=== PATIENT | female | born 1940 | race Caucasian/White ===

== ENCOUNTER 2023-08-10 12:02 | Emergency (ER) | payer OTHER, SELFPAY ==
[2023-08-10 12:05] VITALS: BMI 19.8
[2023-08-10 12:27] VITALS: BP 219/99
[2023-08-10 13:31] VITALS: BP 205/93
[2023-08-10 13:52] LABS: Urine Albumin Negative (Neg - Trace); Urine Bilirubin Negative (Negative); Urine Character Clear (Clear); Urine Color Yellow; Urine Glucose Negative (Negative); Urine Ketone Negative (Negative); Urine Leukocyte Negative (Negative); Urine Nitrite Negative (Negative); Urine Occult Blood Negative (Negative); Urine Specific Gravity 1.015 (<1.030); Urine Urobilinogen Negative (Neg - 1+)
[2023-08-10 14:00] VITALS: BP 193/93
--- NOTE | 2023-08-10 14:25 | ED.GENMED ---
History of Present Illness
<Johnie Candelario DO - Last Filed: 08/10/23 14:30>
General
Chief Complaint: Abdominal Pain
Source: patient and family
Exam Limitations: dementia
Time Seen by Provider: 08/10/23 12:17
Travel History
Have you had any contact with someone who has COVID-19?: No
Do you have any symptoms of coronavirus? Fever > 100 degrees, chills, cough, shortness of breath, sore throat, loss of taste or smell, muscle aches, or headache?: No
History of Present Illness
History of Present Illness:
83-year-old female presents with abdominal pain. Daughter states that the past she has had constipation so thought maybe it was related. She did try an enema she did put out a small amount of stool. Patient did have some vomiting as well.
Symptoms started 2 days ago. No fevers.
Past History
<Johnie Candelario DO - Last Filed: 08/10/23 14:30>
Past History
ED Past Medical History: CVA, HTN, Other (TIA, peptic ulcer) and Other (Dementia)
Social History
Tobacco: Non-smoker
Alcohol: None
Drug: None
Personal:
Living: alone
Employment: Not employed
Phy Exam
<Johnie Candelario DO - Last Filed: 08/10/23 14:30>
Physical Exam
Physical Exam:
CONSTITUTIONAL Patient alert and oriented to person. Well-appearing. Vital signs reviewed.
HEAD atraumatic, normocephalic.
EYES eyelids normal to inspection, Extraocular muscles intact, Conjunctiva normal, Sclera normal.
NECK normal range of motion, Trachea midline, no jugular venous distention.
RESPIRATORY CHEST No respiratory distress noted, Chest expansion equal, Bilateral breath sounds clear.
CARDIOVASCULAR regular rate and rhythm, Heart sounds normal.
ABDOMEN moderate infraumbilical abdominal tenderness, mild distention
BACK normal inspection, no obvious deformities
UPPER EXTREMITY range of motion normal, Motor strength normal, no cyanosis, no edema.
LOWER EXTREMITY range of motion normal, Motor strength normal, no cyanosis, no edema.
NEURO Speech normal, No focal motor deficits, Cranial Nerves intact to screening exam.
SKIN skin warm, dry, and normal in color.
Course
<Johnie Candelario, DO - Last Filed: 08/10/23 14:30>
Orders/Labs/Results
Orders:
Orders
08/10/23 12:45
CT Abd/Pel (IV only)-[facility] only Urgent
Comment:
Reason For Exam: severe abd pain
08/10/23 12:49
0.9% Sodium Chloride 500 ml [Nss] 500 ml IV BOLUS
08/10/23 13:06
Urinalysis Reflex To Culture Urgent
Date Specimen was Collected: 08/10/23
Time Specimen was Collected: 13:04
08/10/23 13:12
Straight Cath As Directed
Frequency: One time now
08/10/23 14:20
Basic Metabolic Panel Urgent
Complete Blood Count/With Diff Urgent
08/10/23 17:04
Enema- Treatment ONCE
Type: Milk of Molasses
08/10/23 18:29
Magnesium Citrate [Citroma] 300 ml PO ONCE ONE
08/10/23 18:30
Magnesium Citrate [Citroma] 300 ml .ROUTE .STK-MED ONE
08/10/23 20:13
Glycerin [Glycerin Suppository Adult] 1 supp RECTAL NOW STA
Abnormal Lab Results
08/10/23
14:20
RDW 15.9 H %
(11.5-14.5)
Glucose 107 H mg/dl
(70-99)
08/10/23 14:20
08/10/23 14:20
Vital Signs
Initial and Last Documented VS:
Initial Vital Signs
Resp Pulse Ox
11 96
08/10/23 12:12 08/10/23 12:12
Last Documented Vital Signs
Temp Pulse Resp BP Pulse Ox
99.1 F 72 14 164/100 95
08/10/23 12:27 08/10/23 21:58 08/10/23 21:58 08/10/23 21:58 08/10/23 15:30
<Lev Hoskins, DO - Last Filed: 08/10/23 22:36>
Orders/Labs/Results
Orders:
Orders
08/10/23 12:45
CT Abd/Pel (IV only)-[facility] only Urgent
Comment:
Reason For Exam: severe abd pain
08/10/23 12:49
0.9% Sodium Chloride 500 ml [Nss] 500 ml IV BOLUS
08/10/23 13:06
Urinalysis Reflex To Culture Urgent
Date Specimen was Collected: 08/10/23
Time Specimen was Collected: 13:04
08/10/23 13:12
Straight Cath As Directed
Frequency: One time now
08/10/23 14:20
Basic Metabolic Panel Urgent
Complete Blood Count/With Diff Urgent
08/10/23 17:04
Enema- Treatment ONCE
Type: Milk of Molasses
08/10/23 18:29
Magnesium Citrate [Citroma] 300 ml PO ONCE ONE
08/10/23 18:30
Magnesium Citrate [Citroma] 300 ml .ROUTE .STK-MED ONE
08/10/23 20:13
Glycerin [Glycerin Suppository Adult] 1 supp RECTAL NOW STA
Abnormal Lab Results
08/10/23
14:20
RDW 15.9 H %
(11.5-14.5)
Glucose 107 H mg/dl
(70-99)
08/10/23 14:20
08/10/23 14:20
Vital Signs
Initial and Last Documented VS:
Initial Vital Signs
Resp Pulse Ox
11 96
08/10/23 12:12 08/10/23 12:12
Last Documented Vital Signs
Temp Pulse Resp BP Pulse Ox
99.1 F 72 14 164/100 95
08/10/23 12:27 08/10/23 21:58 08/10/23 21:58 08/10/23 21:58 08/10/23 15:30
<Johnie Candelario DO - Last Filed: 08/10/23 14:30>
MDM/Problems Addressed
Differential Diagnosis Includes:
Colitis, diverticulitis, AAA, rectal impaction, perforated viscus, UTI
<Johnie Candelario DO - Last Filed: 08/10/23 14:30>
*Pulse Oximetry
Patient hypoxic: no
*Critical Care Note
Total Time (30-74mins, 75-104mins- exclusive of procedures): Not Applicable
Data Reviewed
Review of Other/Old Records Reveals: Radiology Studies (Recent June CT reviewed)
Source: family
Prescriptions/Medications Considered But Not Given:
Consider pain medication patient appears stable at rest
<Lev Hoskins, DO - Last Filed: 08/10/23 22:36>
Update Note
Update Note:
5 PM care of patient was initially transitioned pending CT and blood work. Blood work without clinical significance. CT shows evidence of constipation. There is no evidence of stercoral colitis. Daughter at bedside does not want her mother being
stuck to many times. The provider performing ordered lactic acid but this would require another venous puncture. Daughter refused to have this done. On my exam, she is sitting in bed comfortably. Rectal disimpaction was performed with nurse
Yolande at bedside. Significant amount of stool was removed. Will give milk of molasses enema. I discussed with daughter that constipation untreated could result in bowel perforation and significant morbidity and mortality. Daughter acknowledges
this and states she wants to take the daughter home.
I did convince Patient and mother to stay for further treatment. I did give magnesium citrate but patient does not drink a lot. I then gave a suppository. Although there is not significant bowel movements, patient is now stating that she is
feeling better. At this point, will give dose of lactulose and discussed follow-up with primary care. On my exam, she has a soft and nontender abdomen
ED Attending Note
<Johnie Candelario DO - Last Filed: 08/10/23 14:30>
-
Portions of this chart may have been created with voice recognition software.� Occasional wrong word or��sound alike� substitutions may have occurred due to the inherent limitations of voice recognition software.
Discharge Plan
Departure
Patient Disposition: Home (Routine Discharge)
Date of Disposition: 08/10/23
Time of Disposition: 22:34
Patient with high blood pressure during this ER visit?: Yes
Discharge Problem:
Constipation
Instructions: Constipation, Adult (DC)
Prescriptions:
No Action
nystatin 100,000 unit/gram cream
1 applic TOPICAL BID
Patient Comments:
07/09/2023, patient's family state that they alternate this medication with the powder.
clonidine 0.3 mg/24 hr patch weekly
1 patch transdermal SA
Patient Comments:
07/09/2023, patient applied this patch on Saturday (07/06/2023) and is currently wearing it on her right upper arm.
mupirocin 2 % ointment
1 applic topical BID
multivitamin Liquid
1 ea PO DAILYPRN PRN (Reason: supplement)
nystatin 100,000 unit/gram Powder
1 applic TOPICAL BID PRN (Reason: under breasts)
Patient Comments:
07/09/2023, patient's family state that they will apply this medication to the patient whenever their rashes are looking better and are not wet. Family state that they alternate between this medication and the cream.
losartan 50 mg Tablet
50 mg PO DAILY Qty: 30 0RF
nitrofurantoin 50 mg/5 mL suspension
50 mg PO Q12H Qty: 60 0RF
Rx Instructions:
Take 5 ml twice aday for 3 days only
ondansetron HCl 4 mg tablet
4 mg PO Q8H PRN (Reason: nausea and vomiting) Qty: 10 0RF
Referrals:
Jesse Lyles MD [Family Provider] -
Activity Restrictions/Additional Instructions:
Please return for any worsening symptoms.
You may return at any time if you have further concerns.
Please follow up with your doctor at the first available appointment, preferably this week.
Please take miralax daily until symptoms resolve.
Thank you for choosing [facility].
Interventions
Interventions:
*Risk Screen - Suicide Last Done: 08/10/23 12:05
*General Assessment Last Done: 08/10/23 12:05
*Neglect/Abuse Screening Last Done: 08/10/23 12:05
ED- Fall Risk Assessment Last Done: 08/10/23 18:24
*ED COVID-19 Vaccine History Last Done: 08/10/23 12:05
[facility]-Cnwsgk-Zkyhacsxmm Assessment Last Done: 08/10/23 12:05
[2023-08-10 14:35] LABS: % Basophils 0.4 % (0-2); % Eosinophils 3.4 % (0-6); % Immature Granulocytes 0.3 % (0-0.5); % Lymphocytes 26.4 % (20.5-51.1); % Monocytes 4.1 % (1.7-9.3); % Neutrophils 65.4 % (42.2-75.2); Absolute Eosinophils 0.3 10^3/uL (0-0.7); Absolute Lymphocytes 1.9 10^3/uL (1.2-3.4); Absolute Monocytes 0.3 10^3/uL (0.1-0.6); Absolute Neutrophils 4.7 10^3/uL (1.4-6.5); Hematocrit 41.4 % (37.0-47.0); Hemoglobin 13.9 g/dL (12.0-16.0); Mean Corp Hgb Conc. 33.6 g/dL (33.0-37.0); Mean Corpuscular Hgb 27.4 pg (27.0-31.0); Mean Corpuscular Volume 81.5 fL (81.0-99.0); Nucleated Red Blood Cells % 0 %; Platelet Count 256 10^3/uL (130-400); Red Blood Cell Count 5.08 10^6/uL (4.20-5.40); Red Cell Dist. Width 15.9 % (11.5-14.5); White Blood Cell Count 7.3 10^3/uL (4.8-10.8)
[2023-08-10 14:56] LABS: Blood Urea Nitrogen 12 mg/dl (7-17); Calcium 9.8 mg/dl (8.4-10.2); Carbon Dioxide 24 mmol/L (22-30); Chloride 106 mmol/L (98-107); Estimated Creatinine Clearance 38 ml/min; Glucose 107 mg/dl (70-99); Sodium 138 mmol/L (135-145); eGFR > 60.00
[2023-08-10] MEDS: NSS 500 IV (15:02)
[2023-08-10] MEDS: CITROMA 300 ML PO (18:32)
[2023-08-10] MEDS: GLYCERIN SUPPOSITORY ADULT 1 SUPP RECTAL (20:26)
[2023-08-10 20:31] VITALS: BP 190/92
[2023-08-10 21:58] VITALS: BP 164/100
--- NOTE | 2023-08-11 00:55 | EDRN ---
Report given to Acute Care transport
== END 2023-08-11 01:02 | disposition home or self-care (01) ==
LOC: EMR 12:02
PROVIDERS: EMERGENCY PHYSICIAN Emergency Medicine; FAMILY PHYSICIAN Family Medicine
DX: K59.00 Constipation, unspecified (principal); R10.9 Unspecified abdominal pain; R11.10 Vomiting, unspecified; I10 Essential (primary) hypertension; F03.90 Unspecified dementia, unspecified severity, without behavioral disturbance, psychotic disturbance, mood disturbance, and anxiety; Z86.73 Personal history of transient ischemic attack (TIA), and cerebral infarction without residual deficits; Z88.0 Allergy status to penicillin
CPT/HCPCS: 99285; 74177; 80048; 81003; 85025; Q9967

== ENCOUNTER 2023-10-05 10:31 | Inpatient (IN) | payer OTHER, SELFPAY ==
[2023-10-05] VITALS (11 sets, daily range): BP systolic 110–171; BP diastolic 54–97; BMI 17.8
[2023-10-05 06:56] LABS: % Basophils 0.4 % (0-2); % Immature Granulocytes 0.4 % (0-0.5); % Lymphocytes 8.3 % (20.5-51.1); % Neutrophils 87.9 % (42.2-75.2); Absolute Lymphocytes 0.9 10^3/uL (1.2-3.4); Absolute Monocytes 0.3 10^3/uL (0.1-0.6); Absolute Neutrophils 9.6 10^3/uL (1.4-6.5); Hematocrit 41.2 % (37.0-47.0); Hemoglobin 13.6 g/dL (12.0-16.0); Mean Corpuscular Hgb 28.1 pg (27.0-31.0); Mean Corpuscular Volume 85.1 fL (81.0-99.0); Nucleated Red Blood Cells % 0 %; Platelet Count 294 10^3/uL (130-400); Red Blood Cell Count 4.84 10^6/uL (4.20-5.40); Red Cell Dist. Width 15.3 % (11.5-14.5)
[2023-10-05 07:07] LABS: ALT (SGPT) 14 U/L (0-35); AST (SGOT) 29 U/L (14-36); Alkaline Phosphatase 81 U/L (38-126); Blood Urea Nitrogen 19 mg/dl (7-17); Calcium 9.9 mg/dl (8.4-10.2); Carbon Dioxide 22 mmol/L (22-30); Chloride 102 mmol/L (98-107); Glucose 133 mg/dl (70-99); Potassium 5.1 mmol/L (3.5-5.1); Sodium 139 mmol/L (135-145); Total Bilirubin 0.8 mg/dl (0.2-1.3); Total Protein 7.4 g/dl (6.3-8.2); eGFR > 60.00
--- NOTE | 2023-10-05 07:14 | ED.GENMED ---
History of Present Illness
General
Chief Complaint: Change in Mental Status
Time Seen by Provider: 10/05/23 07:05
Travel History
Have you had any contact with someone who has COVID-19?: Unable to Answer
Do you have any symptoms of coronavirus? Fever > 100 degrees, chills, cough, shortness of breath, sore throat, loss of taste or smell, muscle aches, or headache?: Unable to Answer
History of Present Illness
History of Present Illness:
83-year-old female with history of dementia presents to the emergency department for evaluation of altered mental status. According to her daughter with whom she resides she has had mild coughing as well as general fatigue for the past several
days, was evaluated by her primary care physician yesterday and apparently had a urine culture that was positive. She was started on Bactrim double strength, she has taken 1 dose thus far but apparently vomited shortly after administration. This
morning she seemed to be more confused than normal and was moaning and appeared uncomfortable. She does have a prior history of constipation. No fevers noted. Patient cannot provide any history due to dementia and acute change in mental status
Past History
Past History
ED Past Medical History: CVA, HTN, Other (TIA, peptic ulcer) and Other (Dementia)
Social History
Tobacco: Non-smoker
Alcohol: None
Drug: None
Personal:
Living: alone
Employment: Not employed
Review of Systems
Review of Systems
Allergies reviewed?: Yes
All Other Systems: ROS reviewed and negative except as documented in HPI and ROS
Phy Exam
Physical Exam
Physical Exam:
GEN: Thin and frail, cachectic appearing, no distress
HEENT: Oral mucosa moist, no scleral icterus
Cardiac: Regular rate and rhythm, no murmur
Lung: No respiratory distress, no tachypnea, lungs clear to auscultation
Abdomen: Soft, patient moans to palpation of all 4 quadrants, no rigidity
MSK: No gross deformity or injuries
Skin: Good color, no pallor or jaundice, no rashes
Neuro: Alert, follows commands intermittently, minimally verbal
Psych: Calm, cooperative
Course
Orders/Labs/Results
Orders:
Orders
10/05/23 06:45
CBC/With Diff [Complete Blood Count/With Diff] Urgent
CMP [Comprehensive Metabolic Panel] Urgent
10/05/23 07:12
CT Abd/Pel (IV only)-[facility] only Urgent
Comment:
Reason For Exam: diffuse abd pain, vomiting
10/05/23 07:13
CT Head W/o Iv Contrast Urgent
Comment:
Reason For Exam: altered mental status, vomiting
10/05/23 07:22
Urinalysis Reflex To Culture Urgent
Date Specimen was Collected: 10/05/23
Time Specimen was Collected: 07:21
Urine Microscopic Reflex Cult Urgent
Urine Culture Urgent
RENAN Source: U
Specimen Description:
Date Specimen was Collected: 10/05/23
Time Specimen was Collected: 07:21
10/05/23 09:58
Ertapenem [Invanz] 1,000 mg 0.9% Sodium Chloride [Nss] 50 ml IV NOW
10/05/23 10:21
Admit/Transfer Patient As Directed
Co-Sign Provider:
Level of Care: Inpatient admission
Assign to:: Medical/Surgical
Physician / Group: Leodan/hospitalist
Diagnosis: change in MS/UTI
Reason for Hospitalization: change in MS/UTI
Expected length of stay greater than two midnights?: Yes
ELOS- Estimated Length of Stay in days: 2
I certify the patient meets the requirements for IP care: Yes
Speech Therapy Eval & Treat Routine
10/05/23 10:22
Code Status As Directed
Resuscitation Status: Full Code
Abnormal Lab Results
10/05/23 10/05/23
06:45 07:22
WBC 11.0 H 10^3/uL
(4.8-10.8)
RDW 15.3 H %
(11.5-14.5)
Absolute Neuts (auto) 9.6 H 10^3/uL
(1.4-6.5)
Absolute Lymphs (auto) 0.9 L 10^3/uL
(1.2-3.4)
Neutrophils % 87.9 H %
(42.2-75.2)
Lymphocytes % 8.3 L %
(20.5-51.1)
BUN 19 H mg/dl
(7-17)
Glucose 133 H mg/dl
(70-99)
Ur Occult Blood Reflex 1+ A
(Negative)
Urine Nitrite (Reflex) Positive A
(Negative)
Leukocyte Esterase Rfl 2+ A
(Negative)
Urine WBC (Reflex) >100 A /HPF
(0-5)
Urine Bacteria (Reflex) Many A
(Negative)
10/05/23 06:45
10/05/23 06:45
Vital Signs
Initial and Last Documented VS:
Initial Vital Signs
Pulse Resp BP Pulse Ox
94 18 171/81 95
10/05/23 06:30 10/05/23 06:30 10/05/23 06:30 10/05/23 06:30
Last Documented Vital Signs
Pulse Resp BP Pulse Ox
76 14 124/89 97
10/05/23 12:00 10/05/23 12:00 10/05/23 12:00 10/05/23 10:00
MDM/Problems Addressed
MDM/Problems Addressed:
83-year-old female presents with altered mental status. Began antibiotics for UTI yesterday but did not tolerate the medication. She is unable provide any history secondary to acute encephalopathy superimposed on top of dementia. She has
leukocytosis and strong evidence for UTI on straight cath UA. Given her encephalopathic changes it would likely be challenging for her daughter to administer her home antibiotics thus will admit for IV antibiotics and further management
*Critical Care Note
Total Time (30-74mins, 75-104mins- exclusive of procedures): Not Applicable
ED Attending Note
-
Portions of this chart may have been created with voice recognition software.� Occasional wrong word or��sound alike� substitutions may have occurred due to the inherent limitations of voice recognition software.
Discharge Plan
Departure
Patient Disposition: Admit
Date of Disposition: 10/05/23
Time of Disposition: 09:44
Presentation/result/management discussed w/ accepting MD/DO: Hospitalist
Discharge Problem:
Urinary tract infection, Toxic metabolic encephalopathy
Interventions
Interventions:
*Risk Screen - Suicide Last Done: 10/05/23 06:30
*General Assessment Last Done: 10/05/23 06:30
*Neglect/Abuse Screening Last Done: 10/05/23 06:30
ED- Fall Risk Assessment Last Done: 10/05/23 12:49
*ED COVID-19 Vaccine History Last Done: 10/05/23 12:49
*Nursing Disposition Last Done: 10/05/23 12:49
ED- Pulmonary Assessment Last Done: 10/05/23 08:10
ED-Psychological Assessment Last Done: 10/05/23 12:49
ED- Neurological Assessment Last Done: 10/05/23 08:10
ED- Cardiac Assessment Last Done: 10/05/23 08:10
ED Swallowing Screen Last Done: 10/05/23 08:10
Discharge Date and Time
Discharge Date/Time: 10/05/23 12:52
[2023-10-05 07:41] LABS: Urine Albumin Trace (Neg - Trace); Urine Bilirubin Negative (Negative); Urine Character Clear (Clear); Urine Color Yellow; Urine Glucose Negative (Negative); Urine Ketone Negative (Negative); Urine Leukocyte 2+ (Negative); Urine Nitrite Positive (Negative); Urine Occult Blood 1+ (Negative); Urine Urobilinogen Negative (Neg - 1+)
[2023-10-05 08:03] LABS: Urine Bacteria Many (Negative); Urine White Cell >100 /HPF (0-5)
[2023-10-05 08:04] LABS: Urine Red Blood Cell 0-2 /HPF (0-2)
--- NOTE | 2023-10-05 10:04 | HPS.HSE ---
Family Physician
-
Family Physician: INTERVIEWE UNKNOWN - PT NOT
Chief Complaint
-
confusion
History of Present Illness
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 Per daughter, she is conversant at baseline, but now she does
not respond to any questions.
She was evaluated by her primary care physician the day prior and apparently had a urine culture that was positive.�She was started on Bactrim double strength, has taken 1 dose but vomited shortly after administration.�
Medical History
Past Medical History
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
Past Surgical History: Reports Other (No recent major surgery)
Social History
Unable to obtain full social history at this time due to: Dementia
Alcohol: None
Drug: None
Personal:
Living: With Family (daughter )
Family History
Family History: Not pertinent
Allergies / Home Medications
Allergies reflects when Allergies were last updated in [facility].
Home Medications with original date entered in [facility]
Allergy/Medication List:
Allergies
Allergy/AdvReac Type Severity Reaction Status Date / Time
Penicillins Allergy Nausea / Verified 02/26/23 10:31
Vomiting-tolerated
ceftriaxone
02/2023
admission
Home Medications
clonidine 0.3 mg/24 hr weekly transdermal patch 1 patch transdermal SA Blood Pressure 06/10/23
mupirocin 2 % topical ointment 1 applic topical BID rash on back 06/10/23
nystatin 100,000 unit/gram topical cream 1 applic topical BID under breasts 06/10/23
multivitamin 1 ea PO DAILYPRN PRN supplement 07/09/23
nystatin 100,000 unit/gram topical powder 1 applic topical BID PRN under breasts 07/09/23
losartan 50 mg tablet 50 mg PO DAILY #30 tabs 07/11/23
nitrofurantoin 50 mg/5 mL oral suspension 50 mg (5 mL) PO Q12H #60 mL 07/11/23
ondansetron HCl 4 mg tablet 4 mg PO Q8H PRN nausea and vomiting #10 tabs 07/11/23
Review of Systems
-
Neurological: Reports See HPI
Psych: Reports See HPI
Physical Exam
Vital Signs
Vital Signs
Pulse Resp BP Pulse Ox
82 23 110/80 96
10/05/23 08:00 10/05/23 08:00 10/05/23 08:00 10/05/23 08:00
Physical Exam
General: Well Developed, Well Nourished, No Apparent Distress, Comfortable and Appears Chronically Ill; No Conversant
HEENT: NormoCephalic, Moist mucous membranes and Atraumatic
Respiratory: Clear and Non Labored Respirations; No Accessory Resp Muscle Use
Cardiac: S1/S2 and Regular Rhythm; No Murmur or Rub
GI: Soft, Non Tender, Non Distended and Normal Bowel Sounds; No Organomegaly
Rectal: Deferred by Provider
Musculoskeletal: No Clubbing, No Cyanosis and No Edema
Skin: No Rash
Neuro: Awake
Psych: Calm and Apparent Dementia; No Intact Judgment/Insight
Laboratory Results
-
10/05/23 06:45
10/05/23 06:45
Laboratory Results
Total Bilirubin 0.8 mg/dl (0.2-1.3) 10/05/23 06:45
AST 29 U/L (14-36) 10/05/23 06:45
ALT 14 U/L (0-35) 10/05/23 06:45
Alkaline Phosphatase 81 U/L (38-126) 10/05/23 06:45
Data Reviewed
-
Lab Data: Labs Reviewed by me
Impression/Plan
-
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 Per daughter, she is conversant at baseline, but now she does
not respond to any questions.
She was evaluated by her primary care physician the day prior and apparently had a urine culture that was positive.�She was started on Bactrim double strength, has taken 1 dose but vomited shortly after administration.�
In the morning of admission, she seemed to be more confused than normal and was moaning and appeared uncomfortable.
A/P:
# acute metabolic encephalopathy likely due to UTI
# h/o ESBL Klebsiella UTI
Follow urine Cx
cont ertapenem
Monitor MS
SPL eval prior to starting diet, gentle IVF while NPO
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
# h/o Dysphagia
baseline MS is awake and conversant, but not orientated. She is currently non-conversant
SPL eval as above
daughter states that pt does NOT like pureed diet
# History of seizure likely related to stroke at that time
Not on seizure meds
# Essential HTN
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
DVT ppx: lovenox SQ
Code: Full
DW daughter at bedside
[2023-10-05] MEDS: INVANZ 60 MG IV (10:05)
[2023-10-05] MEDS: NSS 1000 IV (13:57)
[2023-10-05] MEDS: MIRALAX 17 GRAMS PO (14:09)
--- NOTE | 2023-10-05 14:48 | PTOTSP ---
ST Acute Care Evaluation
Pt presents with mild oral phase dysphagia and no signs of pharyngeal dysphagia. Pt is deemed safe to consume regular solids and thin liquids, provided that regular solids are selected by someone who is familiar with what she can tolerate and that
they are cut up into bite sized pieces. Given that the pt's daughter will remain with the pt during this stay, recommendations are listed below with this in consideration.
Recommendations:
- Initiate PO diet of regular solids, thin liquids, meds in puree (as able).
- Aspiration precautions: only feed when pt is fully awake and alert, small bites/sips, alternate bites/sips.
- MULTIMEDIA AUTHORING SPECIALIST to f/u to ensure safest, least restrictive diet consistency is being provided.
[2023-10-05] MEDS: SENOKOT-S PO ×2 (20:34→22:54)
--- NOTE | 2023-10-05 23:20 | PTCARENOTE ---
Although Tammy has been actively using the bathroom, she refused both oral care and washing her body, with either cleansing wipes or soap and water.
[2023-10-06 06:00] VITALS: BMI 17.2
[2023-10-06] MEDS: NSS 1000 IV (06:13)
[2023-10-06 07:00] VITALS: BP 129/108
--- NOTE | 2023-10-06 07:05 | PTCARENOTE ---
Daughter refused to have am labs drawn for pt. Informed am RN. to follow up w/ doctors
[2023-10-06] MEDS: COZAAR 50 MG PO (09:44)
[2023-10-06] MEDS: MIRALAX 17 GRAMS PO (09:45)
[2023-10-06] MEDS: SENOKOT-S 1 TABLET PO (09:45)
[2023-10-06] MEDS: INVANZ 60 MG IV (09:45)
--- NOTE | 2023-10-06 10:00 | PTCARENOTE ---
When i entered the room at 930, I was rechecking BP to ensure accuracy. I spoke with the daughter.She was pleasant happy and just waking up from sleeping on the chairs. She did not have any complaints. her mother looked very comfortable pleasant
and without any grimacing or tense facial features to suggest discomfort. I spoke with the daughter to ask how to unmanned equipment operator her mother her medications and she stated it was with applesauce. I told her that it was suggested i try something the
patient likes such as yogert or icecream from last nurse. She stated that apple sauce was fine. I went to go crush medications. Two minutes later, I came back with the PCT to do give medications and do a comfort round to check her bottom, change
her brief and to re position her to prevent pressure ulcers. Pt very frail and cachectic with decreased muscle mass and fat in all extremities with sunken cheeks. She has very prominent elbows and wanted to reduce pressure ulcer risk. When PCT and
my self came back, the daughter was extremily agitated had patient onto her left side and was changing the patient brief from a small smear. The patient was crying, grimacying and very tense and visibly uncomfortable as daughter was repositioning
her and changing diaper all on her own. I said, Amy and i were just going to do this and she told me it is no use because she can do it her self since noone ever comes in to take care of her mother. She was agitated, tremoring and had hostile
physical features , PCT stepped back. I asked if we could assist her and she stated she should not have to ask. She began telling me how terrible all the nurses are and the terrible care she has gotten here and its better she does it on her
own. At this point, In a hathaway mannor, I explained to her that her actions towards me and the PCT are not appropriate as we were present to care for her mother. She again told me how terrible the nurses have been and she does not trust anyone. I
asked her if she would step out of the room to allow the PCT and myself change her mother. She did comply. After we changed her and repositioned the patient, I asked the daughter if she would give amy and I a chance to provide great care to her
mother. I validated her anger, hostility and her untrust for us. I asked her if she would let me show her my best work and true committment to her mother before she takes it out on me. At this point she agreed and then she proceeded to tell me that
her brother on this floor almost a year ago and then her mother suffered a stroke from the stress of this . We talked for thirty minutes about the difficult time she has had in the last year with loosing her brother and taking care of her
mother. I spent time to tell her how well cared her mother appears and that she has been doing a good job. I left the room wtih a promise that we will be making hourly comfort rounds and turning her q 2 hours.
--- NOTE | 2023-10-06 10:28 | W.PN.HOSP.TC ---
Today's Communication/Plan
-
see A/P
Assessment / Plan
Assessment / Plan
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 Per daughter, she is conversant at baseline, but now she does
not respond to any questions.
She was evaluated by her primary care physician the day prior and apparently had a urine culture that was positive.�She was started on Bactrim double strength, has taken 1 dose but vomited shortly after administration.�
In the morning of admission, she seemed to be more confused than normal and was moaning and appeared uncomfortable.
A/P:
# acute metabolic encephalopathy likely due to UTI
# h/o ESBL Klebsiella UTI�
urine Cx with GNR, follow S/S
cont ertapenem
Monitor MS
SPL cleared for solid, cont with ensure
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
# h/o Dysphagia
baseline MS is awake and conversant, but not orientated. She is currently non-conversant
daughter states that pt does NOT like pureed diet
SPL cleared for solid
# History of seizure likely related to stroke at that time
Not on seizure meds
# Essential HTN
continue ADMINISTRATIVE LIBRARY ASSISTANT Clonidine patch and losartan with holding parameter
DVT ppx: lovenox SQ
Code: Full
DW daughter at bedside
Anticipated Discharge: 24 - 48 hours
Subjective/Interval History
-
Date of Service: October 06, 2023
Objective Data
-
Labs:
Laboratory Results
10/06/23
06:00
WBC Cancelled
Hgb Cancelled
Hct Cancelled
Plt Count Cancelled
Sodium Cancelled
Potassium Cancelled
Chloride Cancelled
Carbon Dioxide Cancelled
BUN Cancelled
Creatinine Cancelled
Glucose Cancelled
Calcium Cancelled
Vital Signs:
Vital Signs
Temp Pulse Resp BP Pulse Ox
36.4 C 53 15 129/108 94
10/06/23 07:00 10/06/23 07:00 10/06/23 07:00 10/06/23 07:00 10/06/23 07:00
I&O
10/05/23 10/06/23 10/07/23
06:59 06:59 06:59
Intake Total 790 / 790
Balance 790 / 790
Review of Systems
-
Unable to obtain full review of systems at this time due to: Dementia and Acuity
Physical Exam
-
General: Well Developed, No Apparent Distress, Comfortable and Appears Chronically Ill; Negative Conversant
HEENT: Normocephalic
Respiratory: Clear to Auscultation and Non Labored Respirations; Negative Accessory Resp Muscle Use
Cardiac: Regular Rhythm
GI: Soft and Nontender
Skin: Warm
Neuro: Awake
Psych: Calm and Apparent Dementia
Data Reviewed
-
Labs: Labs Reviewed by me
[2023-10-06 15:00] VITALS: BP 157/82
[2023-10-06 15:26] VITALS: BP 152/78
--- NOTE | 2023-10-06 15:42 | PTCARENOTE ---
Pt turned and repositioned . Pt with BM smear, changed brief, cream applied and new foam dressing. Daughter at bedside appears vry happy and pleasant. Patient without any grimacing and appears very comfortable and pain free. daughter ordered lunch
and it is on her way
--- NOTE | 2023-10-06 15:44 | PTCARENOTE ---
Last note was fo 12 NOON. I am unable to change the time
--- NOTE | 2023-10-06 15:45 | PTCARENOTE ---
1400. Pt turned and repositioned onto left side. brief changed with brown pasty stool.
[2023-10-06] MEDS: SENOKOT-S PO ×2 (20:28)
--- NOTE | 2023-10-06 22:37 | PTCARENOTE ---
Nurse and PCT entered patient's room @2233 to turn/reposition and provide personal hygiene care to patient. Patient's daughter at first agreed for patient to be turned then immediately after stated 'I will do it, I do it at home all the time, I
don't want to wake her up since she's sleeping'. Patient's daughter stated to this nurse to have patient reposition every 3 hours. This nurse reminded daughter of protocol to turn patient every 2 hours to prevent pressure ulcer, and reminded
daughter patient was repositioned @2030 and incontinent care provided. Daughter states to come back in 1/2 hour, will continue plan of care.
--- NOTE | 2023-10-06 23:20 | PTCARENOTE ---
2310 Nurse and Tech turn/repositioned patient and incontinent care provided, vitals taken with daughter at bedside.
[2023-10-06 23:35] VITALS: BP 163/60
--- NOTE | 2023-10-07 01:15 | PTCARENOTE ---
Patient's daughter refused q2h repositioning, request staff to return @0200, will continue plan of care.
--- NOTE | 2023-10-07 04:19 | PTCARENOTE ---
Patient's daughter refused 0400 repositioning, does not want patient repositioned until 0600, will continue plan of care.
--- NOTE | 2023-10-07 05:58 | PTCARENOTE ---
White Lead Filterer reports daughter refuse to have AM labs drawn, will continue plan of care.
[2023-10-07] MEDS: COZAAR 50 MG PO (07:49)
[2023-10-07] MEDS: SENOKOT-S 1 TABLET PO ×2 (07:49→20:03)
[2023-10-07] MEDS: MIRALAX 17 GRAMS PO ×2 (07:49→20:03)
[2023-10-07 07:54] VITALS: BP 176/71
--- NOTE | 2023-10-07 09:10 | W.PN.HOSP.TC ---
Today's Communication/Plan
-
see bold
Assessment / Plan
Assessment / Plan
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 Per daughter, she is conversant at baseline, but now she does
not respond to any questions.
She was evaluated by her primary care physician the day prior and apparently had a urine culture that was positive.�She was started on Bactrim double strength, has taken 1 dose but vomited shortly after administration.�
In the morning of admission, she seemed to be more confused than normal and was moaning and appeared uncomfortable.
A/P:
# Acute metabolic encephalopathy likely due to UTI
# H/o ESBL Klebsiella UTI�
Urine cultures growing Klebsiella pneumoniae, sensitive to cefazolin
Change IV Invanz to Keflex 500 mg 3 times a day
# Vascular dementia with h/o multiple infarction left cerebral hemisphere
# H/o Dysphagia
Baseline MS is awake and conversant, but not orientated. She is currently non-conversant
Lives at home with daughter
Daughter states that pt does NOT like pureed diet
SPL cleared for solid
# History of seizure likely related to stroke at that time
Not on seizure meds
# Essential HTN
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
Blood pressure fluctuates, add hydralazine as needed
DVT ppx: lovenox SQ
Code: Full
Updated daughter on phone 10/06
Total time spent to see the patient on the floor, examine the patient, review data and lab results, discuss treatment plan with patient, nursing staff around 51 minutes.
Physical Exam
General: No acute distress
HEENT: Normocephalic, Atraumatic, EOMI, MMM
Respiratory: Clear to Auscultation bilaterally
Cardiac: Normal S1/S2, Regular Rate and Rhythm
GI: Soft, Nontender, Nondistended, Normal Bowel Sounds
Extremities: No Clubbing, Cyanosis, or Edema
Neuro: Pleasantly confused, not answering questions
Psych: Calm
Derm: No Visible lesions
Anticipated Discharge: Within 24 hours
Subjective/Interval History
-
Date of Service: October 07, 2023
Patient is refusing to answer questions. Her caregivers at her bedside, states she ate breakfast. No vomiting. No fever.
Objective Data
-
Labs:
Laboratory Results
10/07/23
06:00
WBC Pending
Hgb Pending
Hct Pending
Plt Count Pending
Sodium Pending
Potassium Pending
Chloride Pending
Carbon Dioxide Pending
BUN Pending
Creatinine Pending
Glucose Pending
Calcium Pending
Vital Signs:
Vital Signs
Temp Pulse Resp BP Pulse Ox
97.5 F 41 16 176/71 93
10/07/23 07:54 10/07/23 07:54 10/07/23 07:54 10/07/23 07:54 10/07/23 07:54
I&O
10/06/23 10/07/23 10/08/23
06:59 06:59 06:59
Intake Total 790 / 790 330 / 330
Balance 790 / 790 330 / 330
[2023-10-07] MEDS: INVANZ 60 MG IV (09:27)
[2023-10-07 11:15] VITALS: BP 188/85
[2023-10-07 11:52] VITALS: BMI 17.2
[2023-10-07] MEDS: MUCINEX 600 MG PO (12:31)
[2023-10-07] MEDS: APRESOLINE 50 MG PO ×2 (13:35→21:08)
--- NOTE | 2023-10-07 14:26 | PTOTSP ---
Received order for PT evaluation. S/w pt's caregiver in room who stated pt is nonambulatory at baseline and they use [facility] to get her OOB at home. There are no skilled PT needs for this pt who has long-standing contractures, resists ROM, and is
dependent at baseline. PT will sign off.
--- NOTE | 2023-10-07 15:28 | CM ---
CM spoke with pts daughter Silvana to complete initial assessment
Pt lives with her daughter Silvana, and has a FF set up in home
Pt is total care. Has a post acute care nurse (Diana) for 8-10 hours/day M-F
DME includes mech lift, wheel chair
Denies past SNF
Receiving home services with [facility] and [facility] care. Through palliative care pt receives home PT thru [facility]
Pt will need transport home
PCP - Dr Esteban Lyles
Pharm - [facility], [place]
CM will refer to [facility] to resume service
Plan - Home with services - HH [facility]
[2023-10-07 15:35] VITALS: BP 127/65
[2023-10-07] MEDS: KEFLEX 500 MG PO ×2 (16:06→21:08)
--- NOTE | 2023-10-07 18:03 | PTCARENOTE ---
Report: director of global talent nurse stated daughter refused AM labs
7:10: this nurse introduced self to pt and daughter, stated no needs at this time. Noted
this nurse would be back around with morning Meds in a little bit
7:50-8:05: ensure given, large ice water w/ miralax given (daughter stated it was not mixed enough
and mixed it again), losartan given crushed with applesauce (daughter stated Meds weren't crushed
enough, this nurse used silent night to crush Meds), pt refuses to open mouth for Meds, will
try and give Senokot later. Assessment completed by this nurse. Pt brief dry. Pt turned,
pillow placed under R side. Pt daughter ordered breakfast for pt. Daughter left,
critical care nurse now at bedside. Pt daughter requesting enema for pt. ' that's what works at
home and i think the miralax is hurting her stomach'
9:27-9:38: This nurse hung IV abx (see MAR). Pt took crushed senna from this am in applesauce.
pt took some sips of ensure and tea. Caregiver given cup of ice water, no other needs
verbalized at this time. Breakfast tray at bedside.
10:10-10:19: this nurse and tech went into room to change and turn pt. Pt caregiver at bedside.
pt disconnected from IV Abx. pt had small void and small pastey bm. pt wiped with purple bath
wipes. Pt turned, pillow placed under Left side. Breakfast try cleared, no other needs vocalized
by pt or caregiver at this time.
10:55: House keeper in to clean room
11:00: daughter called for update. this nurse did not speak to hospitalist, no report in for today
at this time. tt Dr. Adan to call daughter for update.
11:05 : bp and hr elevated this AM, recheck bp 188/85 hr 54. Dietitian in room
11:14: manual bp 182/90. Dr adan notified via tt. Caregiver also requesting pt get Mucinex,
Dr. adan notified via tt
11:44: dr. adan notified this nurse that daughter was updated and happy, Meds ordered
12:30-12:50: Lunch at bedside, lunch ensure given. caregiver stepped out of the room so
nurse and tech could give pt enema. Moderate soft bm post enema. pt changed, small void
noted. Mucinex given crushed in applesauce. Pt turned, pillow placed under Right side.
Caregiver states no other needs at this time.
13:35 : Dr. Adan added PRN hydralazine, BP still elevated 174/72 hr 51. PO hydralazine given (see MAR)
13:55-14:03: changed pt, small loose bm. Pt turned, pillow under Left side. No other
needs stated by pt or caregiver at bedside.
15:00: bp 127/65 hr 70
16:06: Keflex given in applesauce. Last ensure given for today. pt changed, small smear and void.
pt turned, pillow placed under Right side. no further needs verbalized by pt or caregiver
at the bedside at this time.
17:00: Daughter updated at bedside. stated that this nurse would be back to change,
turn and give pt 6pm Meds.
17:55: this nurse walked into room, pt daughter turning pt, stated she already changed pt.
dinner at bedside. pt daughter declined pt to receive Lovenox. Pt and daughter given fresh ice water.
this nurse and another nurse boosted pt in bed.
[2023-10-07] MEDS: MUCINEX PO (20:03)
[2023-10-07] MEDS: ROBITUSSIN 100 MG PO (20:15)
--- NOTE | 2023-10-07 20:17 | PTCARENOTE ---
Patient received from previous shift with daughter by bedside. Patient repositioned by nurse and Tech @1950, incontinent care provided. Patient with small pasty stool. SPECIAL FORCES OFFICER notified requesting mucinex tablet to be changed to liquid since med is not
allowed to be crushed and patient is unable to take whole. New order received, meds administered as ordered.
[2023-10-07 20:29] LABS: Glucose - Point of Care 117 mg/dl (70-99)
[2023-10-07 20:31] VITALS: BP 164/105
--- NOTE | 2023-10-07 20:43 | W.PN.UPDATE ---
Update Note
Progress Note Update
SHROUDMAN at 20:27
Daughter was at the bedside, stating the the patient (looks confused) and have difficult breathing. Patient is afebrile, Spo2 98% on RA, bp, hr within limits, and bs 117.
Patient was admitted with toxic metabolic encephalopathy. During the exam, patient is calm, sitting in bed with no apparent distress, breathing normally on room air, patient is awake but not answering questions. Per chart review ( patient has
vascular dementia that due to stroke) and seems that she was not answering the providers on the previous exams. Head CT done 10/04 with no acute abnormalities and no new changes. Discussed the case with the daughter and she refused diagnostic tests
to be done for the patient. Daughter mentioned that her mother will be D/C by tomorrow in am and no need for tests to be done.
--- NOTE | 2023-10-07 20:44 | RR ---
Patient's daughter arrived into room approximately 2019, came into the hallway yelling that her mom 'is freaking out'. Nurses rushed in to room where patient was lying in bed with no s/s of distress. Patient in bed at her baseline appear calm and
comfortable. Patient was turned/repositioned, meds administered with no issues prior to daughter entering room. A Rapid Response was called on this patient, please see Rapid Response form.
--- NOTE | 2023-10-07 21:26 | PTCARENOTE ---
Patient's daughter told CUSTOM APPLICATOR Maxine she doesn't want labs drawn that was ordered during Rapid Response. 2107 prn BP med and Abt given as ordered with daughter by bedside. Patient observed biting down on toothbrush that daughter was using for oral care.
Oral swabs offered, daughter accepts. 2129 Daughter reminded patient will need repositioning @2199. Daughter stated she will ring when she is ready for patient to be turned, plan of care continues.
--- NOTE | 2023-10-07 22:20 | PTCARENOTE ---
Nurse did rounds on patient, offered turning/repositioning, patient's daughter refused. patient is alert and awake, daughter conversing with her at bedside.
[2023-10-07 23:15] VITALS: BP 138/93
[2023-10-08] VITALS (7 sets, daily range): BP systolic 91–156; BP diastolic 50–88
--- NOTE | 2023-10-08 00:05 | PTCARENOTE ---
Personal hygiene care provided by nurse and tech, patient incontinent small BM. Vitals taken which are stable. After care was provided, patient's daughter refused for nurse and tech to turn/reposition patient repeatedly stating 'I can do it, I will
do it, I do this at home by myself all the time'. Nurse repeatedly offer to assist in repositioning patient, daughter gets easily agitated and mumbles to her self then repeatedly stated 'I can do it'. Nurse asked patient's daughter if there was
anything else she needed at this time, daughter stated 'no'. will continue plan of care.
[2023-10-08 01:28] LABS: Glucose - Point of Care 147 mg/dl (70-99)
[2023-10-08] MEDS: KEPPRA 1000 MG IV (01:47)
--- NOTE | 2023-10-08 01:54 | W.PN.UPDATE ---
Addendum entered and electronically signed by DANIELAL Richards 10/08/23 06:55:
In am, daughter refused f/u labs as discussed previously with her and would like to speak to the attending physician.
Will update the attending physician.
Original Note:
Update Note
Progress Note Update
another PROJECT FACILITATOR called at 1:25am
Patient had an episode of seizure witnessed by daughter and staff. Patient did not loss her consciousness, she was starring to the ceiling with some face tremor that last for about one minute per staff, vital signs within limits, afebrile bs 147.
Patient has history of seizure seen by neurology at [facility] on 12/2022 was started Keppra 500mg BID and recommended to continue. Currently patient is not on anti seizure meds. Per daughter, 'my mom was acting like zombie' and anti
seizure meds was stopped by her PCP.
Plan
Stat one time of IV Keppra 1000mg now and 500mg BID starting in am. Neuro consult was placed
-Head CT ordered, result shows no acute hemorrhage, herniation , or hydrocephalus. Moderate preventricular hypodensities likely the sequela of small vessel ischemia disease. 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 Extensive parenchymal volume
loss. No calvarial fracture. The visualized paranasal sinus and mastoid air cells are clear.
-Carbon dioxide 14 patient was started on sodium bicarb 150meq in water 70cc/hr IV and will repeat bmp.
-WBC 15.4 previously was 11 on 10/05 patient continue afebrile currently on Keflex 500mg for UTI
-lactic 8.2 that possibly elevated as an effect of the seizure, will recheck q 4hrs.
-Discussed all diagnostic tests result with the daughter at bedside and updated with the current plan of care.
[2023-10-08 01:57] LABS: % Basophils 0.4 % (0-2); % Eosinophils 0.3 % (0-6); % Lymphocytes 13.8 % (20.5-51.1); % Monocytes 2.7 % (1.7-9.3); % Neutrophils 81.8 % (42.2-75.2); Absolute Basophils 0.1 10^3/uL (0-0.2); Absolute Immature Granulocytes 0.2 10^3/uL (0-0.05); Absolute Lymphocytes 2.1 10^3/uL (1.2-3.4); Absolute Monocytes 0.4 10^3/uL (0.1-0.6); Absolute Neutrophils 12.6 10^3/uL (1.4-6.5); Hematocrit 38.1 % (37.0-47.0); Hemoglobin 12.6 g/dL (12.0-16.0); Mean Corp Hgb Conc. 33.1 g/dL (33.0-37.0); Mean Corpuscular Hgb 28.1 pg (27.0-31.0); Mean Corpuscular Volume 84.9 fL (81.0-99.0); Mean Platelet Volume 9.7 fL (7.4-10.4); Nucleated Red Blood Cells % 0 %; Platelet Count 351 10^3/uL (130-400); Red Blood Cell Count 4.49 10^6/uL (4.20-5.40); Red Cell Dist. Width 15.4 % (11.5-14.5); White Blood Cell Count 15.4 10^3/uL (4.8-10.8)
--- NOTE | 2023-10-08 02:15 | RR ---
Patient's daughter was heard screaming @0123, nurses rushed to respond. Patient was observed with seizure like activity. Patient's face was shaking with tremor like appearance. Seizure like activity lasted approximately 1 minute ending @0124, a few
seconds after entering room. Bp was elevated during seizure like activity 219/140 HR 140. Immediately after seizure activity BP was 120/72 HR 92, Pox 94-95 %RA. A Rapid Response was called on this patient, please see Rapid Response form.
[2023-10-08 02:24] LABS: ALT (SGPT) 14 U/L (0-35); AST (SGOT) 30 U/L (14-36); Albumin 3.4 g/dl (3.5-5.0); Alkaline Phosphatase 83 U/L (38-126); Blood Urea Nitrogen 15 mg/dl (7-17); Calcium 9.4 mg/dl (8.4-10.2); Carbon Dioxide 14 mmol/L (22-30); Chloride 105 mmol/L (98-107); Estimated Creatinine Clearance 38 ml/min; Glucose 150 mg/dl (70-99); Lactic Acid 8.2 mmol/L (0.7-2.0); Magnesium 2.2 mg/dl (1.6-2.3); Potassium 3.6 mmol/L (3.5-5.1); Sodium 136 mmol/L (135-145); Total Bilirubin 0.3 mg/dl (0.2-1.3); Total Protein 6.4 g/dl (6.3-8.2); eGFR > 60.00
--- NOTE | 2023-10-08 02:45 | PTCARENOTE ---
Patient received Stat dose of Keppra during RR for seizure like activity, labs drawn and patient transferred off unit @[address] scan by RR team. Upon returning from CT scan, patient turned and repositioned, incontinent care provided, brief
slightly damp. Daughter offered ice water which was accepted. Critical results of Co2 14 and Lactic Acid 8.2 TT to FINANCIAL REPORT SERVICE SALES AGENT. New orders received for IV fluids, will continue plan of care.
[2023-10-08] MEDS: SODIUM BICARBONATE 1150 MEQ IV ×2 (02:55→17:58)
--- NOTE | 2023-10-08 03:10 | PTCARENOTE ---
Patient's daughter asking to speak to a doctor. Patient's daughter told that the GREENHOUSE FLORIST is in charge of the unit at night. Patient's daughter wants to speak to GREENHOUSE FLORIST. GREENHOUSE FLORIST Maxine notified, stated she will be in to speak to patient's daughter as soon as
possible due to being in the middle of an admission. Patient's daughter made aware, will continue plan of care.
[2023-10-08] MEDS: OFIRMEV 100 IV (03:54)
--- NOTE | 2023-10-08 04:21 | PTCARENOTE ---
0310 Patient's daughter asked to speak to a doctor. Patient's daughter told that the DIRECTOR OUTCOMES is in charge of the unit at night. Patient's daughter wants to speak to DIRECTOR OUTCOMES. DIRECTOR OUTCOMES was made aware and came in to speak to daughter.
--- NOTE | 2023-10-08 05:55 | PTCARENOTE ---
0325 Patient's daughter reports patient not feeling well, patient assessed for pain. Patient lethargic, drowsy unable to take PO tylenol, SHIRT MAKER made aware, IV tylenol ordered.
0430 Patient's daughter refused q2turn repositioning, stated 'she's comfortable, I don't want to bother her, I'll ring if I need anything'.
0554 Patient refused f/u lab draw for lactic acid.
--- NOTE | 2023-10-08 07:31 | PTCARENOTE ---
0603 ICT PROJECT MANAGER made aware patient's daughter refused lactic acid lab draw, new order received for BMP. Patient's daughter again refuse lab draw.
--- NOTE | 2023-10-08 07:59 | W.PN.HOSP.TC ---
Addendum entered and electronically signed by Jorge Morgan MD 10/08/23 16:19:
#Moderate protein calorie malnutrition
Encourage oral intake
Original Note:
Today's Communication/Plan
-
see bold
Assessment / Plan
Assessment / Plan
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 Per daughter, she is conversant at baseline, but now she does
not respond to any questions.
She was evaluated by her primary care physician the day prior and apparently had a urine culture that was positive.�She was started on Bactrim double strength, has taken 1 dose but vomited shortly after administration.�
In the morning of admission, she seemed to be more confused than normal and was moaning and appeared uncomfortable.
A/P:
# Acute metabolic encephalopathy likely due to UTI
# H/o ESBL Klebsiella UTI�
Urine cultures growing Klebsiella pneumoniae, sensitive to cefazolin
S/p IV Invanz, now on Keflex 500 mg 3 times a day D3/
# Vascular dementia with h/o multiple infarction left cerebral hemisphere
# H/o Dysphagia
Baseline MS is awake and conversant, but not orientated. She is currently non-conversant
Lives at home with daughter -daughter would like patient to return home
Daughter states that pt does NOT like pureed diet
SPL cleared for solid
# History of seizure likely related to stroke at that time
Not on seizure meds
Patient had seizure activity at 1 AM on 10/07
Daughter reports poor reaction to Keppra and Lacosamide
Appreciate neurology input, who was started Brivaracetam�
Will order IV Ativan as needed seizure activity
#Lactic acidosis
Likely due to seizure activity, resolving
# Essential HTN
Continue RESTORER PAPER AND PRINTS Clonidine patch and losartan with holding parameter
Blood pressure fluctuates, added hydralazine as needed
DVT ppx: lovenox SQ
Code: Full
Updated daughter 10/07
Total time spent to see the patient on the floor, examine the patient, review data and lab results, discuss treatment plan with patient, nursing staff around 52 minutes.
Physical Exam
General: No acute distress
HEENT: Normocephalic, Atraumatic, EOMI, MMM
Respiratory: Clear to Auscultation bilaterally
Cardiac: Normal S1/S2, Regular Rate and Rhythm
GI: Soft, Nontender, Nondistended, Normal Bowel Sounds
Extremities: No Clubbing, Cyanosis, or Edema
Neuro: Somnolent
Psych: Calm
Derm: No Visible lesions
Anticipated Discharge: 24 - 48 hours
Subjective/Interval History
-
Date of Service: October 08, 2023
Overnight events noted. Patient had seizure activity. She is currently somnolent, and would not respond. No fever.
Objective Data
-
Labs:
Laboratory Results
10/07/23 10/08/23 10/08/23
20:45 01:43 06:29
WBC Cancelled 15.4 H
Hgb Cancelled 12.6
Hct Cancelled 38.1
Plt Count Cancelled 351
Sodium Cancelled 136 Pending
Potassium Cancelled 3.6 D Pending
Chloride Cancelled 105 Pending
Carbon Dioxide Cancelled 14 L* Pending
BUN Cancelled 15 Pending
Creatinine Cancelled 0.7 Pending
Glucose Cancelled 150 H Pending
Calcium Cancelled 9.4 Pending
Total Bilirubin 0.3
AST 30
ALT 14
Alkaline Phosphatase 83
Vital Signs:
Vital Signs
Temp Pulse Resp BP Pulse Ox
98.4 F 83 18 150/87 97
10/08/23 07:00 10/08/23 07:00 10/08/23 07:00 10/08/23 07:00 10/08/23 07:00
I&O
10/07/23 10/08/23 10/09/23
06:59 06:59 06:59
Intake Total 330 / 330 720 / 720
Balance 330 / 330 720 / 720
[2023-10-08] MEDS: KEPPRA 500 MG IV (08:24)
[2023-10-08] MEDS: COZAAR 50 MG PO (08:31)
[2023-10-08] MEDS: MIRALAX 17 GRAMS PO (09:37)
[2023-10-08] MEDS: MUCINEX PO (09:38)
[2023-10-08] MEDS: KEFLEX 500 MG PO ×3 (09:38→23:07)
[2023-10-08] MEDS: SENOKOT-S PO ×2 (09:39→20:36)
--- NOTE | 2023-10-08 09:54 | PTCARENOTE ---
pt's morning medications were given spaced out in applesauce and chocolate pudding for easier delivery. Daughter, Silvana, in agreement with plan. Decision by daughter to hold non-critical meds.
--- NOTE | 2023-10-08 10:20 | PTOTSP ---
Orders received. Chart reviewed. Pt currently requiring total care for all ADLs and mobility; pt is a leif transfer at home. Pt lives with daughter and 24 hour caregiver support. Skilled OT services not indicated at this time. Will sign off.
--- NOTE | 2023-10-08 10:30 | CON.NEURO ---
Neuro Assessment/Plan
Assessment
IMPRESSIONS/RECOMMENDATIONS:
Abrupt change in mental status with staring spells and prior history of seizures attributed to dementia and prior stroke
Most likely due to absence of anti-seizure medication, new UTI, and prior risk factors for seizures
Plan
replace Levetiracetam with Brivaracetam due to suggestion of sedation with Levetiracetam and Lacosamide; patient's family requests the discontinuance of medication
consider return of palliative care
Will continue to follow patient as needed.
Consultation
Order
Date of Consultation: 10/08/23
Requesting Provider: Hospitalist
Reason for Consult: Seizure
Subjective/Objective
Subjective Data
Date of Service: October 08, 2023
Patient was brought to this hospital's emergency department due to decline in mental status. The patient has had generalized fatigue and an abnormal urine culture immediately prior to the day of presentation.
Prior to presentation, the patient was placed on palliative care due to advanced dementia.
Previously, the patient was evaluated and treated by my esteemed colleague due to an acute left anterior circulation and basal ganglia ischemic stroke in 2022. The patient was then described as having episodes of staring spells lasting
approximately 1 minute beginning in December 2022.
Subsequently seen by my esteemed colleague in the office 02/2023 with instruction to change Levetiracetam to Lacosamide. Patient continued demonstrate to tearfulness then was discontinued from use of that med as of approximately 06/2023. Suggested to
have had excessive sleepiness with Lacosamide and Levetiracetam.
Patient now on Palliative Care Service as outpatient.
While hospitalized, the patient was described as experiencing an episode of staring into space as witnessed by her daughter who is at bedside. This episode lasted approximately 1 minute prior to complete resolution. At the time the patient was
able to her mouth although she was unable to speak at the time.
The patient subsequently the following day experienced an identical episode. Neither episode was clearly associated with other symptomatology including involuntary movements of the body, tongue biting, incontinence of bowel or bladder.
Objective Data
Vital Signs
Temp Pulse Resp BP Pulse Ox
36.9 C 83 18 150/87 97
10/08/23 07:00 10/08/23 08:31 10/08/23 07:00 10/08/23 08:31 10/08/23 07:00
Lab Results
10/08/23 01:43
Sodium 136 mmol/L (135-145) 10/08/23 01:43
Potassium 3.6 mmol/L (3.5-5.1) D 10/08/23 01:43
BUN 15 mg/dl (7-17) 10/08/23 01:43
Glucose 150 mg/dl (70-99) H 10/08/23 01:43
Calcium 9.4 mg/dl (8.4-10.2) 10/08/23 01:43
Patient Allergies
Penicillins Allergy (Verified 02/26/23 10:31)
Nausea / Vomiting-tolerated ceftriaxone 02/2023 admission
Review of Systems
-
Unable to obtain full review of systems at this time due to: Dementia and Lethargy
History Source: Patient
All other systems: Reviewed and negative
Physical Exam
-
General: No Apparent Distress and Appears Stated Age
Eyes: No Ptosis
HEENT: Normocephalic and Moist Mucous Membranes
Neck: Full Range of Motion
Respiratory: No Dyspnea; Negative Accessory Resp Muscle Use
Cardiac: No Murmur
GI: Non-distended
Skin: Unremarkable
Extremities: No Clubbing, No Cyanosis and No Edema
Psych: Negative Intact Judgement/Insight
Extended Neurological Exam
Mood & Affect: Unable to Assess
Attention Span & Concentration: Lethargic, Closes Eyes after Stimulation (instantly; maintains eyes closed) and Unable to Perform 2 Step Request; Negative Awake, Alert or Interactive
Memory: Unable to Recall Personal History
Tremor: Hand Tremor Absent and Head Tremor Absent
Involuntary Movement: None
Speech: Expressive Aphasia, Receptive Aphasia and Other (grunting only with stimulation)
Cranial Nerve II: Left Eye: Pupillary Reactivity Unremarkable, Pupillary Size Unremarkable and Unable to Assess Visual [place]
Cranial Nerve II: Right Eye: Pupillary Reactivity Unremarkable, Pupillary Size Unremarkable and Unable to Assess Visual [place]
Cranial Nerves III, IV, : Extraocular Movement: Absent Doll's Eyes
Cranial Nerve V: Facial Sensation: Unable to Assess
Cranial Nerve VII: Facial Symmetry: Normal Facial Symmetry
Cranial Nerve VIII: Hearing: Unable to Assess
Cranial Nerves IX, X: Palate Movement: Unable to Assess
Cranial Nerve XI: Shoulder Shrug: Unable to Assess
Cranial Nerve XII: Tongue Protusion: Unable to Assess
Muscle Strength, Overall: Other (Right arm 0/5, right leg 2/5 withdrawal)
Muscle Bulk & Tone: Bulk Unremarkable and Tone Unremarkable
Pronator Drift: Unable to Assess
Deep Tendon Reflexes: Unremarkable Throughout
Cold Sensation: Unable to Assess
Vibration Sensation: Unable to Assess
Touch Sensation: Withdrawal to Pain
Coordination: Unable to Assess
Babinski Sign: Absent Bilaterally
Gait & Station: Unable to Assess
Data Reviewed
-
Labs: Report Reviewed
Reviewed with: Physician and Family
Old Records: Summarized
Medications
-
Active Medications
Generic Name Dose Route Start Last Admin
Trade Name Freq PRN Reason Stop Dose Admin
Acetaminophen 650 mg 10/05/23 20:42
Acetaminophen (Oral Solution) 650 Mg/20.3 Ml Cup PO 11/02/23 20:41
Q4HPRN PRN
mild pain/HENRIQUEZ/temp> 100.4F
Cephalexin HCl 500 mg 10/07/23 16:00 10/08/23 09:38
Cephalexin 500 Mg Capsule PO 500 mg
TID CANDE Administration
Clonidine HCl 0.3 mg 10/12/23 08:00
Clonidine 0.3 Mg Patch TRANSDERM 11/09/23 07:59
SA CANDE
Enoxaparin Sodium 40 mg 10/05/23 18:00 10/07/23 17:55
Enoxaparin Sodium 40 Mg/0.4 Ml Syringe SC 11/02/23 17:59 Not Given
QPM CANDE
Guaifenesin 600 mg 10/07/23 12:00 10/08/23 09:38
Guaifenesin 600 Mg Extended Release Tablet PO 11/04/23 11:59 Not Given
Q12 CANDE
Guaifenesin 100 mg 10/07/23 19:53 10/07/23 20:15
Guaifenesin Oral Solution (200 Mg/10 Ml) Cup PO 11/04/23 19:52 100 mg
Q4HPRN PRN Administration
cough
Hydralazine HCl 50 mg 10/07/23 12:59 10/07/23 21:08
Hydralazine 50 Mg Tablet PO 11/04/23 12:59 50 mg
TID PRN Administration
for SBP >160
Sodium Bicarbonate 150 meq/ 1,150 mls @ 70 mls/hr 10/08/23 02:30 10/08/23 02:55
Sterile Water IV 10/09/23 02:29 1,150 mls
[id number] CANDE Administration
Levetiracetam 500 mg 10/08/23 08:00 10/08/23 08:24
Levetiracetam (100 Mg/Ml) 500 Mg/5 Ml Vial IV 11/05/23 07:59 500 mg
Q12 CANDE Administration
Losartan Potassium 50 mg 10/06/23 08:00 10/08/23 08:31
Losartan 50 Mg Tablet PO 11/03/23 07:59 50 mg
DAILY CANDE Administration
Ondansetron HCl 4 mg 10/05/23 13:32
Ondansetron 4 Mg/2 Ml Vial IV 11/02/23 13:31
Q6HPRN PRN
nausea and vomiting
Polyethylene Glycol 17 grams 10/07/23 20:00 10/08/23 09:37
Polyethylene Glycol Powder 17 Grams Packet PO 11/04/23 19:59 17 grams
BID CANDE Administration
Senna/Docusate Sodium 1 tablet 10/05/23 20:00 10/08/23 09:39
Docusate W/Senna (Keila-Colace) Tablet PO 11/02/23 19:59 Not Given
BID CANDE
Sodium Chloride 0 flush 10/05/23 14:00
Sodium Chloride 0.9% (Flush) Syringe IV 11/02/23 13:59
PER PROTOCOL CANDE
Home Medications
Medication Instructions Recorded
clonidine 0.3 mg/24 hr weekly 1 patch transdermal SA Blood 06/10/23
transdermal patch Pressure
losartan 50 mg tablet 50 mg PO DAILY #30 tabs 07/11/23
polyethylene glycol 3350 17 gram 17 g PO DAILYPRN PRN constipation 10/05/23
oral powder packet (Miralax)
sulfamethoxazole 800 1 tab PO BID Infection 10/05/23
mg-trimethoprim 160 mg tablet
(Bactrim DS)
Past History
Past History
ED Past Medical History: CVA (L SIDNEY/basal ganglia ischemic 2022), HTN, Other (TIA, peptic ulcer, epilepsy) and Other (Dementia)
ED Past Surgical History: None
Social History
Tobacco: Non-smoker
Alcohol: None
Drug: None
Personal:
Living: alone
Employment: Not employed
Family History
Family History: Other (reviewed and non-contributory)
[2023-10-08 11:23] LABS: % Basophils 0.4 % (0-2); % Eosinophils 0.4 % (0-6); % Immature Granulocytes 0.5 % (0-0.5); % Lymphocytes 22.2 % (20.5-51.1); % Monocytes 4.8 % (1.7-9.3); % Neutrophils 71.7 % (42.2-75.2); Absolute Lymphocytes 1.7 10^3/uL (1.2-3.4); Absolute Monocytes 0.4 10^3/uL (0.1-0.6); Absolute Neutrophils 5.6 10^3/uL (1.4-6.5); Hematocrit 32.2 % (37.0-47.0); Hemoglobin 10.9 g/dL (12.0-16.0); Mean Corp Hgb Conc. 33.9 g/dL (33.0-37.0); Mean Corpuscular Hgb 28.1 pg (27.0-31.0); Mean Platelet Volume 9.6 fL (7.4-10.4); Nucleated Red Blood Cells % 0 %; Platelet Count 272 10^3/uL (130-400); Red Blood Cell Count 3.88 10^6/uL (4.20-5.40); Red Cell Dist. Width 15.3 % (11.5-14.5); White Blood Cell Count 7.9 10^3/uL (4.8-10.8)
[2023-10-08 11:39] LABS: Blood Urea Nitrogen 15 mg/dl (7-17); Calcium 8.8 mg/dl (8.4-10.2); Carbon Dioxide 25 mmol/L (22-30); Chloride 104 mmol/L (98-107); Estimated Creatinine Clearance 33 ml/min; Glucose 97 mg/dl (70-99); Sodium 132 mmol/L (135-145); eGFR > 60.00
[2023-10-08 11:43] LABS: Lactic Acid 2.3 mmol/L (0.7-2.0)
[2023-10-08 11:54] LABS: Procalcitonin 0.35 ng/ml (0.0-0.25)
[2023-10-08] MEDS: BRIVIACT 50 MG PO (12:13)
--- NOTE | 2023-10-08 12:23 | PN.CDI ---
CDI
- -
CDI:
Physician Documentation Request
Admit Date: 10/05/23 10:31
Dear Doctor Do,
10/06 RD note states 'During visit RD able to visualize protrusion of clavical, quad and calf muscle wasting and temporal wasting. With weight loss of 10% in 6 months, < 75% estimated needs > 1 month and observed muscle wasting pt meets AND/ASPEN
criteria for moderate protein calorie malnutrition of chronic illness'
ED exam describes the patient as 'Thin and frail, cachectic appearing'
Ht 5 ft
Wt 91 lbs (10/04)
BMI 17.8
Based on the information, which of the following most accurately represents the patient's nutritional status?
Malnutrition (specify if mild, moderate or severe)
Cachexia without malnutrition
Underweight without malnutrition
No nutritional deficiency
Other (please specify)
Holstein Criteria ([facility] Hospitalist 2017)
2 or more criteria must be present for either
non severe or severe malnutrition
Note that the criteria differs related to the
presence of an acute or chronic illness
Acute Illness Chronic Illness
Energy Intake Non Severe: <75% for >7 days Non Severe: <75% for >1 month
Severe: <50% for >5 days Severe: <75% for >1 month
Weight Loss Non Severe: 1-2% over 1 week Non Severe: 5% over 1 month
5% over 1 month 7.5% over 3 months
7.5% over 3 months 10% over 6 months
1 year N/A 20% over 1 year
Severe: >2% over 1 week Severe: >5% over 1 month
>5% over 1 month >7.5% over 3 months
>7.5% over 3 months >10% over 6 months
1 year N/A >20% over 1 year
Body Fat Non Severe: Mild Decrease Non Severe: Mild Loss
Severe: Moderate Decrease Severe: Severe Loss
Muscle Mass Non Severe: Mild Decrease Non Severe: Mild Loss
Severe: Moderate Decrease Severe: Severe Loss
Fluid Accumulation Non Severe: Mild Accumulation Non Severe: Mild Accumulation
Severe: Moderate to severe Severe: Moderate to severe
accumulation accumulation
Reduced Bridge Attacher Strength Non Severe: N/A Non Severe: N/A
Severe: Measurably reduced Severe: Measurably reduced
Additional criteria that can be used to Determine if Mild or Moderate Malnutrition ([employer]ck Manual 2018)
Mild Moderate Severe
Albumin gm/dl <3.0 gm/dl <2.5 gm/dl <2.0 gm/dl
Pre Albumin mg/dl <15 gm/dl <10 mg/dl <5.0 mg/dl
BMI <18.5 <17 <16
Use of terms such as suspected, likely, concern for, or probable (associated with a specific diagnosis that is being evaluated, monitored, or treated as if it exists) are acceptable and can be coded in the inpatient setting, when documented at the
time of discharge.
Thank you,
Lyudmila Damon RN, BSN
CDI Specialist
tiger text
Please use your independent medical judgment in providing your response.
--- NOTE | 2023-10-08 12:29 | PN.CDI ---
CDI
- -
CDI:
Physician Documentation Request
Admit Date: 10/05/23 10:31
Dear Doctor Do,
Patient admitted for 'Acute metabolic encephalopathy likely due to UTI'
10/07 lactic acid resulted as 8.2
Could you please provide a diagnosis that supports the above abnormalities and additional evaluation/ monitoring:
Lactic acidosis
Abnormal lab value clinically insignificant
Other
Use of terms such as suspected, likely, concern for, or probable (associated with a specific diagnosis that is being evaluated, monitored, or treated as if it exists) are acceptable and can be coded in the inpatient setting, when documented at the
time of discharge.
Thank you,
Lyudmila Damon RN, BSN
CDI Specialist
tiger text
Please use your independent medical judgment in providing your response.
--- NOTE | 2023-10-08 20:20 | PTCARENOTE ---
Pt's dtr called this RN to the bedside, dtr is concerned her mother is having a seizure. Daughter states 'she is just starring and no responding to me' Pt's pupils equal and reactive, Pt visually tracking nursing staff while ambulating in the room,
does not answer questions or follow commands. Yvette BREWER made aware. Approx 10 mins from start of symptoms Pt starts to answers questions and nod her head appropriately. vss. Pt changed and repositioned in bed. Daughter at the bedside.
House COTTON GIN YARD SUPERVISOR will be in to speak with dtr.
[2023-10-08] MEDS: MIRALAX PO (20:36)
--- NOTE | 2023-10-08 21:50 | PTCARENOTE ---
Pt resting in bed, no acute distress, dtr at the bedside. Pt's HR decreasing to 30s. Yvette BREWER aware, no new orders at this time.
--- NOTE | 2023-10-08 21:57 | W.PN.UPDATE ---
Update Note
Progress Note Update
At patients bedside as requested from daughter to discuss patients current medical status and plan of care. Daughter states she witnessed her mother 'stare off' and was nonresponsive for a short period twice this evening. She report patient with PMH
seizures and does not wish to medicate with preventative medications r/t how her mother responded to them. She is indecisive about care as she expresses she wants her comfortable and not to come back and forth from hospital but panics when there is
a change because she does not want anything wrong with her. Daughter is interested in speaking with the hospice team about services they maybe able to assist her with but is not decided that she wants hospice care (she had hospice previously and
company that provided care she was not pleased with). Order placed for a hospice consult.
[2023-10-08] MEDS: MUCINEX 600 MG PO (22:41)
[2023-10-09 03:20] VITALS: BP 152/68
--- NOTE | 2023-10-09 04:52 | DOWNTIME ---
There was a Remotium Client Lathe Tender Downtime on 10/09/2023 from 0100 to 10/09/2023 at 0322. Downtime documentation of patient's care, including medication administrations, has been reconciled in the electronic record per guidelines. Refer to the
patient's paper chart under the miscellaneous tab to see printed paper medication records and downtime forms.
--- NOTE | 2023-10-09 08:16 | W.PN.HOSP.TC ---
Addendum entered and electronically signed by Valentine Isaacs MD 10/09/23 12:44:
Cardiology eval appreciated, Clonidine discontinued and home losartan increased, no plan for pacemaker placement due to comorbidities goals of care as per patient/family
Confirmed with daughter Trisha at bedside, in agreement with discharge today to continue with home services and palliative care at this time.
Original Note:
Today's Communication/Plan
-
follow up repeat labwork
cardiology evaluation
cont abx
cont alarm security or surveillance monitor
ongoing goals of care discussion.
Assessment / Plan
Assessment / Plan
Physical Exam
General: No acute distress appears comfortable at this time
HEENT: Normocephalic, Atraumatic, EOMI, MMM
Respiratory: Clear to Auscultation bilaterally
Cardiac: Normal S1/S2, Regular Rate and Rhythm
GI: Soft, Nontender, Nondistended, Normal Bowel Sounds
Extremities: No Clubbing, Cyanosis, or Edema
Neuro: Somnolent
Psych: Calm
Derm: No Visible lesions
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 Per daughter, she is conversant at baseline, but now she does
not respond to any questions.
She was evaluated by her primary care physician the day prior and apparently had a urine culture that was positive.�She was started on Bactrim double strength, has taken 1 dose but vomited shortly after administration.�
A/P:
# Acute metabolic encephalopathy likely due to UTI
# H/o ESBL Klebsiella UTI�
Urine cultures growing Klebsiella pneumoniae, sensitive to cefazolin
S/p IV Invanz, now on Keflex 500 mg 3 times a day D4/5 antibiotics
# Vascular dementia with h/o multiple infarction left cerebral hemisphere
# H/o Dysphagia
Baseline MS is awake and conversant, but not orientated. She is currently non-conversant
Lives at home with daughter -daughter would like patient to return home
Daughter states that pt does NOT like pureed diet
SPL cleared for solid
#Episode Asystole approx 4.6 sec asystole noted on environmental monitoring specialist 10/08 08:47:11
patient lethargic sleeping at the time, arousable, conversant when aroused crying that she wants to go home
Bradycardia
discussed with Daughter Trisha and Rj Nurse in [place], earlier requesting discharge as below, both agreeable to hold on discharge at this time pending Cardiology Eval, requested
Recommended discontinuation Clonidine (side effect bradycardia) patch however daughter Declined awaiting cardio eval.
# History of seizure likely related to stroke at that time
Not on seizure meds
Patient had seizure activity at 1 AM on 10/07
Daughter reports poor reaction to Keppra and Lacosamide
Appreciate neurology input, who started Brivaracetam�daughter POA Trisha however requested discontinuation after 1 dose.
Possible new sz activity noted later in the evening by daughter 10/07, episodes 'staring off,' as noted in overnight BR[employer]ILER [employer] update note. Daughter MARI continues to decline sz medications.
prn Ativan
#Lactic acidosis
Likely due to seizure activity, resolving
# Essential HTN
Continue DRUM CARRIER Clonidine patch and losartan with holding parameter
Blood pressure fluctuates, added hydralazine as needed
DVT ppx: lovenox SQ
Code: Full
10/08 Dr Isaacs discussed with patient's daughter Trisha who requested to take patient home. Reports that she feels the stress of hospital environment is triggering patient's seizure. Denied any episodes when patient is at home. Discussed the
possibility of progression of disease. Offered restarting Briviact as previously recommended by Neurology, discussed at lease she would be monitored and medications can be adjusted as necessary. Daughter declined in favor of outpatient follow up
with Neurology telemedicine. Daughter verbalized poor quality of life, patient non-ambulatory, needs assistance with feeding, poor oral intake. Reports that she want's to prioritize patient's comfort but unsure as to whether or not she wants to
pursue hospice. Agreeable to palliative care at this time. In preparation of discharge however significant asystole approx 4 sec was noted on telemonitor. Patient sleeping at the time but arousable. Blood pressure stable. Bradycardia 40s noted.
Discussed with patient's daughter MARI [place] and Daughter SUNIL De La Rosa in [place] agreeable to hold on discharge at this time pending Cardiology evaluation.
I spent a total of 60 minutes with the patient or on the floor. More than 50% of this time involved counseling and coordination of care.
Anticipated Discharge: 24 - 48 hours
Subjective/Interval History
-
Date of Service: October 09, 2023
lethargic but arousable. Tearful expressing that she wants to go home. Daughter Trisha present during evaluation.
Objective Data
-
Labs:
Laboratory Results
10/09/23
06:00
WBC Pending
Hgb Pending
Hct Pending
Plt Count Pending
Sodium Pending
Potassium Pending
Chloride Pending
Carbon Dioxide Pending
BUN Pending
Creatinine Pending
Glucose Pending
Calcium Pending
Vital Signs:
Vital Signs
Temp Pulse Resp BP Pulse Ox
98.0 F 53 16 152/68 97
10/09/23 03:20 10/09/23 03:20 10/09/23 03:20 10/09/23 03:20 10/09/23 03:20
I&O
10/08/23 10/09/23 10/10/23
06:59 06:59 06:59
Intake Total 720 / 720 600 / 600 120 / 120
Balance 720 / 720 600 / 600 120 / 120
[2023-10-09 08:52] VITALS: BP 151/76
[2023-10-09] MEDS: COZAAR 50 MG PO (09:20)
[2023-10-09] MEDS: KEFLEX 500 MG PO ×2 (09:20→16:07)
[2023-10-09] MEDS: MIRALAX PO (09:22)
[2023-10-09] MEDS: SENOKOT-S PO (09:23)
[2023-10-09] MEDS: MUCINEX PO (09:23)
--- NOTE | 2023-10-09 09:58 | CM ---
Addendum entered by Mary Kay Mendoza 10/09/23 14:24:
Pt for d/c
Transport at 5PM to home
Daughter Silvana aware
Home with Palliative Care
Addendum entered by Mary Kay Mendoza 10/09/23 10:33:
Per pts daughter Silvana, pt currently receiving services with Palliative Care
Would like to continue services at d/c
Will refer in Care port
Plan - home with Palliative Care when medically ready
Original Note:
Received CM consult for Hospice/Palliative Care
Called pts daughter Silvana [phone]
Daughter reports she plans to speak with her mothers doctor and then she will call CM back
CM will cont to follow
[2023-10-09 11:40] VITALS: BP 142/55
--- NOTE | 2023-10-09 12:07 | CON.CAR ---
Addendum entered and electronically signed by Soham Franklin DO 10/09/23 12:48:
I saw and examined the patient.
The Pillowcase Sewer's note was reviewed and I agree with the note.
Comment:
Plan:
Reviewed tele.
Stop Clonidine patch with short pause.
Increase Losartan for better bp control.
Family would like to continue conservative management and await hospice eval. They are continuing with palliative care
They decline echo, PPM or further monitoring and are requesting for pt to be discharged.
Medical, conservative therapy is appropriate given her comorbidities including advanced dementia and family wishes.
Discussed code status as they are pursuing a comfort based approach to her care.
Please recall if needed.
Original Note:
Consultation
Consultation Request
Date/Time Consultation Performed: 10/09/23
Requesting Provider: Dr. Isaacs
Performing Provider: Autumn Delaney PA-C for Dr. Franklin
Reason for Consultation: pause
Medical History
-
Chief Complaint: altered mental status
History of Present Illness:
Patient is an 83-year-old female with past medical history of vascular dementia, living with daughter who takes care of her. She was noted to have altered mental status leading to admission on 10/05/2023 and was found to have evidence of a UTI,
currently being treated. There was then also concern for her having seizure(s). She did have a seizure in 2022 in the setting of stroke. She had been on antiepileptic, however this was stopped after conversation with patient's PCP due to side
effects/concerns patient was more lethargic. Cardiology consulted today as at 8:47 AM patient was noted to have approximate 5-second pause. Per patient's daughter who is present in room during time of the event did not notice significant change in
her mother. Patient did not report any symptoms. She is on clonidine patch for hypertension as well as losartan 50 mg daily. EKG 10/07 SR with sinus arrhythmia. She lives independently with her daughter who takes care of her. She is on palliative
care as OP.
PMH:
advanced vascular dementia
History of CVA in 2022
HTN
History of dysphagia
Past Medical History
Past Medical History: Other (in HPI)
Social History
Living: With Family
Employment: Retired
Allergies / Home Medications
Allergy/AdvReac Type Severity Reaction Status Date / Time
Penicillins Allergy Nausea / Verified 02/26/23 10:31
Vomiting-tolerated
ceftriaxone
02/2023
admission
�Medication �Instructions �Recorded �Confirmed �Type
clonidine 0.3 mg/24 hr weekly 1 patch transdermal SA Blood 06/10/23 10/05/23 History
transdermal patch Pressure
losartan 50 mg tablet 50 mg PO DAILY #30 tabs 07/11/23 10/05/23 Rx
polyethylene glycol 3350 17 gram 17 g PO DAILYPRN PRN constipation 10/05/23 10/05/23 History
oral powder packet (Miralax)
sulfamethoxazole 800 1 tab PO BID Infection 10/05/23 10/05/23 History
mg-trimethoprim 160 mg tablet
(Bactrim DS)
Review of Systems
-
History Source: Patient and Family
All other systems: Negative unless noted
Physical Exam
Vital Signs
Temp Pulse Resp BP Pulse Ox
98.1 F 60 16 151/76 93
10/09/23 08:52 10/09/23 08:52 10/09/23 08:52 10/09/23 08:52 10/09/23 08:52
Physical Exam
General: No Apparent Distress and Comfortable
HEENT: Normocephalic, Anicteric and Moist Mucous Membranes
Respiratory: Clear and Non Labored Respirations
Cardiac: S1/S2 and Regular Rhythm
GI: Soft, Non Tender, Non Distended and Normal Bowel Sounds
Musculoskeletal: No Clubbing, No Cyanosis and No Edema
Skin: Warm and Dry
Neuro: Awake, Alert and Oriented (to self)
Impression / Plan
-
Primary Larriman Helper: none
Assessment:
Presentation with altered mental status
UTI
Seizure
Lactic acidosis
5 second pause on tele 10/09/23
advanced vascular dementia
History of CVA in 2022
History of seizure 2022 in setting of CVA
HTN
History of dysphagia
ECHO 12/2022: Hyperdynamic LV function, EF greater than 75%, MAC, trace MR
Plan:
-Patient being treated for UTI and seizure. Cardiology consulted as this morning patient noted to have a 5-second pause on telemetry, asymptomatic.
-Discussion with daughter Trisha at bedside, as well as separate conversation with daughter Elvia who is a nurse in [place] via telephone for 4:39. Both in agreement with plan for conservative treatment, and avoiding invasive procedures for
patient
-Given comorbidities and desire of patient/daughters, no plan for PPM
-Will stop outpatient clonidine patch. Will increase outpatient losartan dose from 50 mg daily to 100 mg daily. Daughters are in agreement with this plan
-Discussed echo, however will not change lead, and again avoiding putting patient through unnecessary testing
-Discussed consideration for patient to be made DNR as appears most consistent with daughters goals for patient. They will discuss with each other.
-Hospice to evaluate patient and discuss with daughters. Currently on palliative care as outpatient
-They would like to take patient home as soon as possible. No issues with DC today from cardiac standpoint
-Discussed with nursing. TT hospitalist
Data Reviewed
-
EKG: Tracing Personally Visualized and interpreted
Medical Tests (Nuc Med, Echo etc): Report Reviewed by me
Labs: Labs Reviewed by me
Old Records: Reviewed
--- NOTE | 2023-10-09 12:59 | W.DCSUMMARY ---
Discharge Summary
Discharge Data
Date of Admission: 10/05/23
Date of Discharge: 10/09/23
-
Pending Results: No
Hospital Course
83F history of vascular dementia from stroke (conversant at baseline, but not orientated), h/o seizure likely related to stroke, HTN, p/w altered mental status. Per daughter, she is conversant at baseline, became unresponsive to any questions. She
was evaluated by her primary care physician the day prior and apparently had a urine culture that was positive.� She was started on Bactrim double strength, had taken 1 dose but vomited shortly after administration. �Acute metabolic encephalopathy
suspected due to UTI, h/o ESBL Klebsiella UTI,�Urine cultures grew Klebsiella pneumoniae, sensitive to cefazolin, treated empirically with IV Invanz, she was switched to Keflex 500 mg 3 times a day. Mental status subsequently improved and patient
was more conversant towards end of hospital course. History of seizure likely related to stroke, not on seizure meds, patient's hospitalization was notable for seizure activity. Daughter reported poor reaction to Keppra and Lacosamide. Lactic
acidosis likely due to seizure activity resolving. Neurology evaluated and recommended starting Brivaracetam,�daughter MARI Rico however requested discontinuation after 1 dose. Possible new sz activity noted later in the evening by daughter
10/07, episodes 'staring off,' as noted in overnight PRIMER INSERTING MACHINE OPERATOR update note. Daughter MARI continued to decline sz medications however, due to concerns seizure medications affected patient's mental status ('made her like a zombie'). She also further
reported that seizure activity only happened while in hospital and was not an issue at home. Hospitalization was further complicated with episode asystole approx 5 sec noted on employee benefits attorney 10/08 08:47:11. Patient lethargic sleeping at the
time, arousable, conversant when aroused crying that she wants to go home. Bradycardia to 40s noted during stable but with stable blood pressure, no hypotension. Cardiology evaluated and Clonidine was discontinued, while home losartan was
increased. No plan for pacemaker placement due to comorbidities and goals of care as per patient/family. Relatively medically stable, patient was discharged home with home services palliative care and outpatient follow up recommendations as per
patient's daughters wishes.
Discharge Plan
-
Patient Disposition: Home with Home Care
Discharge Diagnosis/Procedures: Urinary Tract Infection, Vascular Dementia, Seizure Disorder, Bradycardia, Asymptomatic asystole 5 sec since resolved, Hypertension
Condition: Fair
Diet: Regular
Additional Diets: Ensure Enlive Chocolate three times a day
Activity: With assistance and As tolerated
Driving Restrictions: No driving
Bathing Restrictions: None
Blood Work: If in line with goals of care, please repeat CBC and BMP with primary care provider in 1 week of discharge
Other Services: VN
Activity Restrictions/Additional Instructions:
Please follow up with primary care provider in 1 week of discharge and Neurology in 1-2 weeks of discharge.
Keflex prescribed for 2 more days to treat urinary tract infection.
Losartan increased to 100 mg daily for better blood pressure control especially in lieu of discontinuation Clonidine due to bradycardia episode of asystole 5 seconds asymptomatic.
Please take medications as prescribed/recommended and follow up with primary care provider and/or other health care provider involved in your care for refills and/or further adjustments to your medication regimen as necessary.
Referrals:
Escobar Bee MD [Active] - in one to two weeks
UNKNOWN - PT NOT,INTERVIEWE [Family Provider] -
Prescriptions:
New
cephalexin 500 mg Capsule
500 mg PO TID 2 Days Qty: 6 0RF
losartan 100 mg Tablet
100 mg PO DAILY 30 Days Qty: 30 0RF
Continued
polyethylene glycol 3350 [Miralax] 17 gram Powder In Packet
17 g PO DAILYPRN PRN (Reason: constipation)
Discontinued
clonidine 0.3 mg/24 hr patch weekly
1 patch transdermal SA
Patient Comments:
10/05/23- placed on 10/04/23 currently wearing it on her left upper arm.
losartan 50 mg Tablet
50 mg PO DAILY Qty: 30 0RF
sulfamethoxazole-trimethoprim [Bactrim DS] 800-160 mg Tablet
1 tab PO BID
Patient Comments:
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
Discharge Orders:
Discharge Patient (As Directed); Ordered 10/09/23
Ordered By: Valentine Isaacs
Discharge Date and Time
Discharge Date/Time: 10/09/23 17:38
Print Language: HONDURAN
--- NOTE | 2023-10-09 13:46 | HOSPNOTE ---
Received a text from floor RN to see if the daughter would be interested in speaking about hospice services vs. returning home with palliative care. The daughter stated she was unable to speak with me and will reach out when needed.
[2023-10-09 15:30] VITALS: BP 166/73
== END 2023-10-09 17:38 | disposition home health service (06) | DRG 689 ==
LOC: 3 WEST ACU 10:31
PROVIDERS: Family Medicine; Nurse Practitioner Family; Physician Assistant; ADMITTING PHYSICIAN Internal Medicine; ATTENDING PHYSICIAN Internal Medicine; CONSULT PHYSICIAN Nuclear Medicine Nuclear Cardiology; CONSULT PHYSICIAN Psychiatry & Neurology Neurology; EMERGENCY PHYSICIAN Emergency Medicine
DX: N39.0 Urinary tract infection, site not specified (principal); G92.8 Other toxic encephalopathy; E44.0 Moderate protein-calorie malnutrition; Z68.1 Body mass index [BMI] 19.9 or less, adult; E87.20 Acidosis, unspecified; Z51.5 Encounter for palliative care; F02.80 Dementia in other diseases classified elsewhere, unspecified severity, without behavioral disturbance, psychotic disturbance, mood disturbance, and anxiety; F01.50 Vascular dementia, unspecified severity, without behavioral disturbance, psychotic disturbance, mood disturbance, and anxiety; I10 Essential (primary) hypertension
CPT/HCPCS: 70450; 74177; 80048; 80053; 81003; 81015; 82962; 83605; 83735; 84145; 85025; 87040; 87077; 87086; 87186; 92526; 92610; 93005; 96374; 97163; 97530; 99285; J1335; Q9967

== ENCOUNTER 2024-02-23 20:14 | Emergency (ER) | payer OTHER, SELFPAY ==
[2024-02-23 20:19] VITALS: BP 169/96
[2024-02-23 20:21] VITALS: BP 169/96; BMI 13.8
--- NOTE | 2024-02-23 20:37 | EDRN ---
Pts daughter refusing bloodwork/urine.
[2024-02-23] MEDS: ZOFRAN ODT (ORALLY DISINTEGRATING) 4 MG PO (20:38)
--- NOTE | 2024-02-23 20:42 | ED.GENMED ---
History of Present Illness
General
Chief Complaint: Breathing Problem
Source: family (daughter)
Exam Limitations: dementia
Time Seen by Provider: 02/23/24 20:16
History of Present Illness
History of Present Illness:
This is a 83 year old female that is brought in by ambulance. Daughter states that she just started to say that she couldn't breath. States that she has never said this before so she called 911. States that she is to have oral surgery tomorrow as
she is taking antibiotic for a cracked tooth. States that she is taking Clindamycin. Denies any fever, chills, chest pain, nausea, vomiting, diarrhea, headache, dizziness. States that patient is normally incont.
Past History
Past History
ED Past Medical History: CVA (L SIDNEY/basal ganglia ischemic 2022), HTN and Other (TIA, peptic ulcer, epilepsy, Dementia, Gi bleeding. UTI)
ED Past Surgical History: None
Social History
Tobacco: Non-smoker
Alcohol: None
Drug: None
Personal:
Living: with family (daughter)
Employment: Not employed
Family History
Family History: Other (reviewed and non-contributory)
Review of Systems
Review of Systems
Unable to obtain full review of systems at this time due to: dementia
Other source history: family
All Other Systems: ROS reviewed and negative except as documented in HPI and ROS
Constitutional: Reports no symptoms; Denies fever or chills
EENT: Reports no symptoms
Respiratory: Reports trouble breathing; Denies cough
Cardiac: Reports no symptoms; Denies chest pain
ABD/GI: Denies nausea, vomiting or diarrhea
: Reports no symptoms
Musculoskeletal: Reports no symptoms
Skin: Reports no symptoms
Neurological: Reports no symptoms; Denies dizzy or headache
Psychiatric: Reports no symptoms
Phy Exam
General Physical Exam
General Presentation: no apparent distress
General age: appears stated age
General Skin: warm and dry
General Habitus: debilitated and elderly
General Mental: usual mental status (states that she feels Lousy)
ENT Exam
ENT Exam: TM's normal, pharynx normal and neck supple
Eye Exam
Eye Exam: EOMI
Cardiovascular Exam
Cardiovascular Exam: regular rate/rhythm, no edema and normal peripheral pulses
Pulmonary Exam
Pulmonary Exam: lungs clear, no respiratory distress, no rales, chest non tender, no crackles, no rhonchi, no wheezing and no cough
Gastrointestinal Exam
Gastrointestinal Exam: normal bowel sounds, non tender, soft, no organomegaly, no pulsatile mass and non distended
Musculoskeletal Exam
Musculoskeletal Exam: no edema
Skin Exam
Skin Exam: normal color, warm/dry, no rash and no petechia
Psychiatric Exam
Psychiatric Exam: normal mood/affect (For patient)
Scores
Heart Failure Risk
Heart Failure Risk Score: Not Applicable
Course
Orders/Labs/Results
Orders:
Orders
02/23/24 20:36
Ondansetron Orally Disint [Zofran Odt (Orally Disintegrating)] 4 mg .ROUTE .STK-MED ONE
02/23/24 20:37
Ondansetron Orally Disint [Zofran Odt (Orally Disintegrating)] 4 mg PO NOW STA
02/23/24 20:42
0.9% Sodium Chloride 500 ml [Nss] 500 ml IV BOLUS
02/23/24 20:43
Electrocardiogram (*1) Urgent
Reason for Study: Abdominal Pain
EKG- Treatment ONCE
02/23/24 20:42
02/23/24 20:42
Vital Signs
Initial and Last Documented VS:
Initial Vital Signs
Pulse Resp BP
101 10 169/96
02/23/24 20:19 02/23/24 20:19 02/23/24 20:19
Last Documented Vital Signs
Temp Pulse Resp BP Pulse Ox
98.2 F 91 16 169/96 99
02/23/24 20:21 02/23/24 20:30 02/23/24 22:00 02/23/24 20:21 02/23/24 20:30
MDM/Problems Addressed
Differential Diagnosis Includes:
Nausea due to antibiotic use, UTI
MDM/Problems Addressed:
This is a 83 year old female that is brought in by ambulance with c/o breathing difficulty. Daughter states that the patient just said that she couldn't breath. States that she has never said this before so she called 911.
Will check labs. give IV fluids, Zofran.
Nursing was attempting to draw labs and was unsuccessful. Daughter then states that she doesn't know what to do as patient the last time was bruised and swollen and he doesn't want us to keep sticking her. Called IV team and there is only one person
in the hospital and he was upstairs and said it would be a while. Explained to daughter that unless he can get labs and check to see if anything is abnormal it would be hard to say what is going on with patient. Will try and called Phlebotomy.
daughter has decided to take the patient home. Will discharge.
Chronic conditions affecting care:
Dementia
Acute Exacerbation and/or Progression of Chronic Illness:
NA
*Pulse Oximetry
Patient hypoxic: no
*Telephone Instrument Supervisor Interpretation
Rate: Telephone Instrument Supervisor- N/A
*Critical Care Note
Total Time (30-74mins, 75-104mins- exclusive of procedures): Not Applicable
ED Attending Note
-
Portions of this chart may have been created with voice recognition software.� Occasional wrong word or��sound alike� substitutions may have occurred due to the inherent limitations of voice recognition software.
Discharge Plan
Departure
Patient Disposition: Home (Routine Discharge)
Date of Disposition: 02/23/24
Time of Disposition: 20:57
Patient with high blood pressure during this ER visit?: Yes
Condition: Good
Covid-19: Not Applicable
Discharge Problem:
Possible nausea
Instructions: BLOOD PRESSURE
Prescriptions:
No Action
polyethylene glycol 3350 [Miralax] 17 gram Powder In Packet
17 g PO DAILYPRN PRN (Reason: constipation)
cephalexin 500 mg Capsule
500 mg PO TID 2 Days Qty: 6 0RF
losartan 100 mg Tablet
100 mg PO DAILY 30 Days Qty: 30 0RF
Activity Restrictions/Additional Instructions:
As discussed, your mother may be having abdominal discomfort due to the Clindamycin. Please try and put something on her stomach before she takes the medication. IF YOU HAVE ANY OTHER CONCERNS PLEASE RETURN TO THE EMERGENCY ROOM
Interventions
Interventions:
*General Assessment Last Done: 02/23/24 20:21
*Neglect/Abuse Screening Last Done: 02/23/24 20:21
ED- Fall Risk Assessment Last Done: 02/23/24 20:21
*Nursing Disposition Last Done: 02/23/24 20:59
ED- Cardiac Assessment Last Done: 02/23/24 20:26
ED- Pulmonary Assessment Last Done: 02/23/24 20:21
Discharge Date and Time
Discharge Date/Time: 02/23/24 22:34
Print Language: KITTITIAN
== END 2024-02-23 22:34 | disposition home or self-care (01) ==
LOC: EMR 20:14
PROVIDERS: EMERGENCY PHYSICIAN Emergency Medicine; FAMILY PHYSICIAN Nurse Practitioner Adult Health
DX: R06.00 Dyspnea, unspecified (principal); I10 Essential (primary) hypertension; G40.909 Epilepsy, unspecified, not intractable, without status epilepticus; F03.90 Unspecified dementia, unspecified severity, without behavioral disturbance, psychotic disturbance, mood disturbance, and anxiety; Z86.73 Personal history of transient ischemic attack (TIA), and cerebral infarction without residual deficits; Z87.440 Personal history of urinary (tract) infections; Z87.11 Personal history of peptic ulcer disease; Z88.0 Allergy status to penicillin
CPT/HCPCS: 99283